=== PATIENT | female | born 1945 | race Caucasian/White ===

== ENCOUNTER → 2017-03-11 | Outpatient (CLI) | payer MEDICARE ==
[~2017-03-11] MED LIST: CYCL10TA2 PO; EZET10TA18 PO; HYDR-2758 PO; [UNRECOGNIZED DRUG - OTHER]
--- NOTE | 2017-03-11 10:40 | RAD ---
Right lower extremity bone length study, 03/11/2017: History: Osteoarthritis, surgical planning AP views of the femur and lower leg were obtained as requested with skin markers in place laterally to facilitate bone length measurements for surgical planning. This limited study demonstrates severe degenerative change involving the medial compartment of the right knee joint with chondrocalcinosis.
--- NOTE | 2017-03-11 12:03 | RAD ---
LOWER EXT JOINT WO RT dated 03/11/2017 10:29 AM Indication: Chronic knee pain , valera and nephew protocol , arthritis. No history of surgery Comparison: No comparison is available. Technique: After 3 plane localizer, thin cut sagittal proton density imaging was acquired along with a T2 axial sequence. Study was performed using valera and nephew protocol. Findings: Moderate tricompartmental hypertrophic change, most severe in the medial compartment. There are prominent marginal osteophytes. Thinning and surface irregularity of the articular cartilage throughout. Broad zones of full-thickness cartilage loss over the weightbearing surfaces medial femoral condyle and medial tibial plateau. There is also probable full-thickness cartilage loss at the medial patellar facet and patellar apex. Small joint effusion. No intra-articular loose body. No significant popliteal cyst. Anterior cruciate and posterior cruciate ligaments are intact. Medial and lateral collateral complexes are grossly intact. Quadriceps tendon and patellar tendon are intact. Blunted morphology of the posterior horn and body of medial meniscus which are somewhat deficient in size. No articular surface tear. Lateral meniscus is grossly normal in morphology and signal. IMPRESSION: 1. Limited exam, intended for surgical localization purposes only. 2. Moderate tricompartmental degenerative arthrosis and chondromalacia, most severe in the medial compartment. 3. Degenerative tearing of the posterior horn and body medial meniscus. 4. Small joint effusion. Electronically signed by: Joao Bernal MD (03/11/2017 11:59 AM) [id number]
== END | disposition home or self-care (01) ==
LOC: RAD 09:23
PROVIDERS: ATTEND Orthopaedic Surgery Sports Medicine
DX: M17.11 Unilateral primary osteoarthritis, right knee (principal); M25.461 Effusion, right knee
CPT/HCPCS: 73721; 77073

== ENCOUNTER → 2017-03-18 | Outpatient (CLI) | payer MEDICARE ==
[~2017-03-18] MED LIST changes: +ASPI-630 PO; +DOCU-150 PO; +LORA10TA68 PO; +LOSA50TA6 PO; +MULT-460 PO; +NAPR220C4 PO; +ROPI1TAB PO
[2017-03-18 09:40] LABS: BASO # 0.1 x10^3/uL (0.0-0.2); BASO % 1 % (0-3); EOS % 2 % (0-3); HEMATOCRIT 41.6 % (36.0-47.0); HEMOGLOBIN 14.2 g/dL (12.0-15.5); LYMPH # 1.5 x10^3/uL (1.0-4.8); LYMPH % 26 % (24-48); MEAN CORPUSCULAR HEMOGLOBIN 30 pg (25-35); MEAN CORPUSCULAR HGB CONC 34 g/dL (31-37); MEAN CORPUSCULAR VOLUME 87 fL (79-100); MONO % 7 % (0-9); NEUT % 65 % (31-73); PLATELET COUNT 324 x10^3/uL (140-400); RED BLOOD COUNT 4.77 x10^6/uL (3.50-5.40); RED CELL DISTRIBUTION WIDTH 14.1 % (11.5-14.5); WHITE BLOOD COUNT 6.1 x10^3/uL (4.0-11.0)
[2017-03-18 09:47] LABS: ALBUMIN 3.7 g/dL (3.4-5.0); CALCIUM 8.7 mg/dL (8.5-10.1); CREATININE 0.6 mg/dL (0.6-1.0); POTASSIUM 3.8 mmol/L (3.5-5.1)
[2017-03-18 09:54] LABS: PROTHROMBIN TIME PATIENT 12.7 SEC (11.7-14.0)
--- NOTE | 2017-03-18 12:52 | EKG ---
[facility] [address] [place] [address] Test Date: 2017-03-18 Test Time: 12:42:10 Pat Name: MIKAL SARMIENTO Department: Room: Gender: F Brokerage Manager: JOSUÉ : 1945 Requested By: KIMBERLEY BRYSON Order Number: [id number] Reading MD: Measurements Intervals [place] Rate: 100 P: -10 [place]: 158 QRS: -30 QRSD: 82 T: 43 QT: 342 QTc: 444 Interpretive Statements SINUS RHYTHM ABNORMAL LEFT AXIS DEVIATION R-S TRANSITION ZONE IN V LEADS DISPLACED TO THE LEFT LEFT ANTERIOR FASCICULAR BLOCK CONSIDER LEFT VENTRICULAR HYPERTROPHY QRS(T) CONTOUR ABNORMALITY CONSIDER ANTEROSEPTAL MYOCARDIAL DAMAGE ABNORMAL ECG RI6.01 No previous ECG available for comparison
[2017-03-18 13:02] LABS: BILIRUBIN,URINE NEGATIVE (NEG); GLUCOSE,URINE NEGATIVE (NEG); NITRITE,URINE NEGATIVE (NEG); PROTEIN,URINE 30 mg/dL (NEG-TRACE)
[2017-03-18 13:17] LABS: BACTERIA,URINE 0 /HPF (0-FEW); RBC,URINE 0 /HPF (0-2); SQUAMOUS EPITHELIAL CELL,UR FEW /LPF
--- NOTE | 2017-03-18 14:51 | RAD ---
Indication history of hypertension. Preop. Anticipated knee replacement. PA and lateral views of the chest were obtained. No prior imaging of the chest is available. The heart and pulmonary vessels appear normal. The lungs are clear. There is a calcified granuloma in the left lung and there are calcified left hilar lymph nodes. There is no acute parenchymal infiltrate. Significant pleural fluid is not seen. IMPRESSION: No acute process seen in the chest
== END | disposition home or self-care (01) ==
LOC: SURGPAT 13:19
PROVIDERS: ATTEND Orthopaedic Surgery Sports Medicine
DX: Z01.818 Encounter for other preprocedural examination (principal); I10 Essential (primary) hypertension; J84.10 Pulmonary fibrosis, unspecified; I51.7 Cardiomegaly; R94.31 Abnormal electrocardiogram [ECG] [EKG]
CPT/HCPCS: 36415; 71020; 80048; 81001; 82040; 85027; 85610; 85651; 85730; 87641; 93005

== ENCOUNTER → 2018-01-09 | Outpatient (CLI) | payer MEDICARE | END | disposition home or self-care (01) | LOC: RAD 09:07 | DX: S83.242A Other tear of medial meniscus, current injury, left knee, initial encounter (principal); M17.12 Unilateral primary osteoarthritis, left knee; M25.462 Effusion, left knee; X58.XXXA Exposure to other specified factors, initial encounter; Y93.89 Activity, other specified; Y92.89 Other specified places as the place of occurrence of the external cause; Y99.8 Other external cause status | CPT/HCPCS: 73721; 77073 ==

== ENCOUNTER → 2018-01-27 | Outpatient (CLI) | payer MEDICARE ==
[2018-01-27 11:03] LABS: ADD MAN DIFF? NO
[2018-01-27 11:10] LABS: BILIRUBIN,URINE NEGATIVE (NEG); CLARITY,URINE CLEAR; COLOR,URINE YELLOW; GLUCOSE,URINE NEGATIVE (NEG); NITRITE,URINE NEGATIVE (NEG); PH,URINE 7.5; PROTEIN,URINE NEGATIVE (NEG-TRACE)
[2018-01-27 11:17] LABS: SQUAMOUS EPITHELIAL CELL,UR FEW /LPF
[2018-01-27 11:20] LABS: BASO % 1 % (0-3); EOS # 0.1 x10^3/uL (0.0-0.7); EOS % 2 % (0-3); HEMATOCRIT 44.4 % (36.0-47.0); HEMOGLOBIN 15.4 g/dL (12.0-15.5); LYMPH # 1.8 x10^3/uL (1.0-4.8); LYMPH % 32 % (24-48); MEAN CORPUSCULAR HEMOGLOBIN 30 pg (25-35); MEAN CORPUSCULAR HGB CONC 35 g/dL (31-37); MEAN CORPUSCULAR VOLUME 85 fL (79-100); MONO # 0.5 x10^3/uL (0.0-1.1); MONO % 9 % (0-9); NEUT # 3.1 x10^3uL (1.8-7.7); NEUT % 57 % (31-73); PLATELET COUNT 295 x10^3/uL (140-400); RED BLOOD COUNT 5.23 x10^6/uL (3.50-5.40); RED CELL DISTRIBUTION WIDTH 14.4 % (11.5-14.5); WHITE BLOOD COUNT 5.5 x10^3/uL (4.0-11.0)
[2018-01-27 11:23] LABS: ALBUMIN 3.8 g/dL (3.4-5.0); ANION GAP 8 (6-14); BLOOD UREA NITROGEN 13 mg/dL (7-20); CALCIUM 9.2 mg/dL (8.5-10.1); CARBON DIOXIDE 30 mmol/L (21-32); CHLORIDE 102 mmol/L (98-107); CREATININE 0.5 mg/dL (0.6-1.0); GFR 120.6; GLUCOSE 150 mg/dL (70-99); POTASSIUM 3.9 mmol/L (3.5-5.1); SODIUM 140 mmol/L (136-145)
[2018-01-27 11:25] LABS: BACTERIA,URINE FEW /HPF (0-FEW); RBC,URINE 0 /HPF (0-2)
[2018-01-27 11:32] LABS: PROTHROMBIN TIME PATIENT 12.4 SEC (11.7-14.0)
[2018-01-27 11:33] LABS: PARTIAL THROMBOPLASTIN TIME 31 SEC (24-38)
[2018-01-27 12:24] LABS: SEDIMENTATION RATE 11 (0-25)
[2018-01-27 22:11] LABS: MRSA BY PCR Negative (Negative)
[2018-01-28 01:18] LABS: HEMOGLOBIN A1C 6.7 % (4.8-5.6)
== END | disposition home or self-care (01) ==
LOC: SURGPAT 10:16
DX: Z01.818 Encounter for other preprocedural examination (principal); J84.10 Pulmonary fibrosis, unspecified; I10 Essential (primary) hypertension
CPT/HCPCS: 36415; 71046; 80048; 81001; 82040; 83036; 85025; 85610; 85651; 85730; 87641; 93005

== ENCOUNTER 2018-02-10 06:07 | Inpatient (IN) | payer MEDICARE ==
[2018-02-10 06:42] LABS: POC GLUCOSE 166 mg/dL (70-99)
[2018-02-10] MEDS: IV RINGERS,LACTATED 1000ML 1,000 ML IV (06:53)
[2018-02-10] MEDS: MELOXICAM 7.5 MG TABLET PO (06:57)
[2018-02-10] MEDS: HYDROcodone/APAP 7.5/325MG 1 TAB TABLET PO (06:58)
[2018-02-10] MEDS ORDERED: fentaNYL PF VIAL 100 MCG/2 ML VIAL IV ×4 (07:00→07:15)
[2018-02-10] MEDS ORDERED: ONDANSETRON PF 4 MG/2 ML VIAL. IV (07:00)
[2018-02-10] MEDS ORDERED: PROCHLORPERAZINE 10 MG/2 ML VIAL. IV (07:00)
[2018-02-10] MEDS ORDERED: MORPHINE SULFATE 2 MG/ML DISP.SYRIN. IV ×2 (07:00→07:15)
[2018-02-10] MEDS ORDERED: IV RINGERS,LACTATED 1000ML 1,000 ML IV (07:00)
[2018-02-10] MEDS ORDERED: LIDOCAINE 1% PF 2 ML VIAL. ID (07:00)
[2018-02-10] MEDS ORDERED: ROCURONIUM 50 MG/5 ML VIAL. (07:12)
[2018-02-10] MEDS ORDERED: PROPOFOL 20 ML IV (07:12)
[2018-02-10] MEDS ORDERED: LIDOCAINE 2% PF Vial for OR 5 ML VIAL. (07:12)
[2018-02-10] MEDS ORDERED: fentaNYL PF VIAL 100 MCG/2 ML VIAL (07:12)
[2018-02-10] MEDS ORDERED: FAMOTIDINE 20 MG/2 ML VIAL (07:12)
[2018-02-10] MEDS ORDERED: ONDANSETRON PF 4 MG/2 ML VIAL. (07:12)
[2018-02-10] MEDS ORDERED: MORPHINE SULFATE 4 MG/ML DISP.SYRIN. IV ×2 (07:15)
[2018-02-10] MEDS ORDERED: ACETAMINOPHEN 325 MG TABLET. PO (07:15)
[2018-02-10] MEDS ORDERED: MORPHINE SULFATE 10 MG/ML VIAL. IV (07:15)
[2018-02-10] MEDS ORDERED: ZOLPIDEM 5 MG TABLET. PO (07:15)
[2018-02-10] MEDS ORDERED: METOCLOPRAMIDE HCL 10 MG/2 ML VIAL. IV (07:15)
[2018-02-10] MEDS ORDERED: PROCHLORPERAZINE 5 MG TABLET. PO (07:15)
[2018-02-10] MEDS ORDERED: CALCIUM CARBONATE 500 MG TAB.CHEW PO (07:15)
[2018-02-10] MEDS ORDERED: traMADol 50 MG TABLET PO ×2 (07:15)
[2018-02-10] MEDS ORDERED: diphenhydrAMINE 50 MG/ML VIAL IV (07:15)
[2018-02-10] MEDS ORDERED: oxyCODONE/APAP 7.5/325 1 TAB TABLET PO (07:15)
[2018-02-10] MEDS ORDERED: oxyCODONE/APAP 5/325 1 TAB TABLET PO (07:15)
[2018-02-10] MEDS ORDERED: 0.9 % SODIUM CHLORIDE 10 ML DISP.SYRIN. IV (07:15)
[2018-02-10] MEDS ORDERED: DEXTROSE 50% 25 GM / 50ML DISP.SYRIN. IV (07:15)
[2018-02-10] MEDS: INSULIN ASPART 100 UNIT/ML 10ML VIAL. SQ (07:30)
[2018-02-10 07:34] LABS: PARTIAL THROMBOPLASTIN TIME 32 SEC (24-38); PROTHROMBIN TIME PATIENT 12.6 SEC (11.7-14.0)
[2018-02-10] MEDS: TRANEXAMIC ACID 1,000 MG in IV NS 50ML -- 1ST BAG INJ (07:40)
[2018-02-10] MEDS ORDERED: PHENYLEPHRINE in 0.9% NACL PF 1 MG/10 ML SYRINGE. IV (07:46)
[2018-02-10] MEDS: MORPHINE SULFATE 5 MG, KETOROLAC 30 MG, ROPIVacaine 0.5% PF 60 ML, EPINEPHrine 0.5 MG i... INT ART (07:55)
[2018-02-10] MEDS ORDERED: NEOSTIGMINE METHYLSULFATE 5 MG/5 ML SYRINGE. (08:37)
[2018-02-10] MEDS ORDERED: GLYCOPYRROLATE 1 MG/5 ML VIAL. (08:37)
[2018-02-10] MEDS: TRANEXAMIC ACID 1,000 MG in IV NS 50ML -- 2ND BAG INJ (08:40)
[2018-02-10] MEDS ORDERED: CETIRIZINE HCL 10 MG TABLET. PO (09:00)
[2018-02-10] MEDS ORDERED: SEVOFLURANE 61 TO 120 MINUTES. IH (09:13)
[2018-02-10 09:57] LABS: POC GLUCOSE 159 mg/dL (70-99)
[2018-02-10 11:37] LABS: POC GLUCOSE 206 mg/dL (70-99)
[2018-02-10] MEDS: PROCHLORPERAZINE 10 MG/2 ML VIAL. IV (11:49)
[2018-02-10] MEDS: INSULIN LISPRO 300 UNITS/3 ML INSULN.PEN. SQ ×2 (11:51→17:41)
[2018-02-10 16:51] LABS: POC GLUCOSE 178 mg/dL (70-99)
[2018-02-10] MEDS: WARFARIN 7.5 MG TABLET. PO (17:34)
[2018-02-10] MEDS: FERROUS SULFATE 325 MG TABLET. PO (17:34)
[2018-02-10] MEDS: IV DEXTROSE 5 %-0.45 % NACL 1,000 ML IV ×2 (19:22→22:00)
[2018-02-10] MEDS: DOCUSATE SODIUM 100 MG CAPSULE. PO (20:54)
[2018-02-10 21:14] LABS: POC GLUCOSE 174 mg/dL (70-99)
[2018-02-11 03:00] LABS: POC GLUCOSE 155 mg/dL (70-99)
[2018-02-11] MEDS: HYDROcodone/APAP 7.5/325MG 1 TAB TABLET PO ×4 (03:10→23:51)
[2018-02-11 04:37] LABS: INR 1.1 (0.8-1.1); PROTHROMBIN TIME PATIENT 14.1 SEC (11.7-14.0)
[2018-02-11 04:45] LABS: HEMATOCRIT 38.5 % (36.0-47.0); HEMOGLOBIN 13.4 g/dL (12.0-15.5); MEAN CORPUSCULAR HGB CONC 35 g/dL (31-37)
[2018-02-11] MEDS ORDERED: MAGNESIUM HYDROXIDE 2,400 MG/30 ML ORAL.SUSP. PO (06:00)
[2018-02-11] MEDS: IV DEXTROSE 5 %-0.45 % NACL 1,000 ML IV ×2 (08:00→17:01)
[2018-02-11 08:35] LABS: POC GLUCOSE 157 mg/dL (70-99)
[2018-02-11] MEDS: metFORMIN 500 MG TABLET PO (08:40)
[2018-02-11] MEDS: CELECOXIB 100 MG CAPSULE. PO (08:40)
[2018-02-11] MEDS: SENNOSIDES/DOCUSATE 8.6/50MG TABLET. PO (08:40)
[2018-02-11] MEDS: FERROUS SULFATE 325 MG TABLET. PO ×2 (08:41→15:15)
[2018-02-11] MEDS: MULTIVITAMIN with MINERAL TABLET. PO (08:41)
[2018-02-11] MEDS: LOSARTAN POTASSIUM 50 MG TABLET. PO (08:41)
[2018-02-11] MEDS: INSULIN LISPRO 300 UNITS/3 ML INSULN.PEN. SQ ×3 (08:50→17:00)
[2018-02-11 12:15] LABS: POC GLUCOSE 178 mg/dL (70-99)
[2018-02-11] MEDS: WARFARIN 5 MG TABLET. PO (15:15)
[2018-02-11] MEDS ORDERED: BISACODYL 10 MG SUPP.RECT. PR (16:00)
[2018-02-11 16:54] LABS: POC GLUCOSE 127 mg/dL (70-99)
[2018-02-11] MEDS: DOCUSATE SODIUM 100 MG CAPSULE. PO (20:39)
[2018-02-12 02:53] LABS: POC GLUCOSE 160 mg/dL (70-99)
[2018-02-12 07:01] LABS: INR 1.8 (0.8-1.1); PROTHROMBIN TIME PATIENT 20.2 SEC (11.7-14.0)
[2018-02-12 07:14] LABS: HEMATOCRIT 39.6 % (36.0-47.0); HEMOGLOBIN 13.7 g/dL (12.0-15.5); MEAN CORPUSCULAR HGB CONC 35 g/dL (31-37)
[2018-02-12] MEDS: INSULIN LISPRO 300 UNITS/3 ML INSULN.PEN. SQ ×2 (08:00→11:47)
[2018-02-12] MEDS: MULTIVITAMIN with MINERAL TABLET. PO (08:05)
[2018-02-12] MEDS: SENNOSIDES/DOCUSATE 8.6/50MG TABLET. PO (08:06)
[2018-02-12] MEDS: FERROUS SULFATE 325 MG TABLET. PO (08:06)
[2018-02-12] MEDS: metFORMIN 500 MG TABLET PO (08:06)
[2018-02-12] MEDS: CELECOXIB 100 MG CAPSULE. PO (08:06)
[2018-02-12] MEDS: HYDROcodone/APAP 7.5/325MG 1 TAB TABLET PO (08:08)
[2018-02-12] MEDS: LOSARTAN POTASSIUM 50 MG TABLET. PO (08:11)
[2018-02-12 11:06] LABS: POC GLUCOSE 139 mg/dL (70-99)
[2018-02-12 11:06] LABS: POC GLUCOSE 155 mg/dL (70-99)
[2018-02-12] MEDS: WARFARIN 2 MG TABLET. PO (12:53)
[2018-02-12] MEDS: HYDROcodone/APAP 10/325 1 TAB TABLET PO (12:53)
[2018-02-12] MEDS ORDERED: WARFARIN 4 MG TABLET. PO (14:00)
[2018-02-13] MEDS ORDERED: WARFARIN 4 MG TABLET. PO (16:00)
== END 2018-02-12 15:55 | disposition home or self-care (01) | DRG 470 ==
LOC: OPSVCIP 06:07 → 4 SOUTHEST 02-11 17:57 → 4 NORTH 11:06
PROC: 0SRD069 Replacement of Left Knee Joint with Oxidized Zirconium on Polyethylene Synthetic Substitute, Cemented, Open Approach (ICD-10-PCS; principal; 2018-02-10 07:26)
DX: M17.12 Unilateral primary osteoarthritis, left knee (principal)
CPT/HCPCS: 36415; 73560; 82962; 85014; 85018; 85610; 85730; 86850; 86900; 86901; 97110-GO; 97110-GP; 97116-GP; 97150-GP; 97162-GP; 97166-GO; 97530-GO; 97530-GP; 97535-GO; A7015; C1713; J0171; J0690; J0780; J1815; J1885; J2001; J2270; J2370; J2405; J2704; J2710; J2795; J3010; J3490; J7030; J7120; S0028

== ENCOUNTER → 2019-08-14 | Outpatient (CLI) | payer MEDICARE ==
[2018-02-12 11:02] VITALS: BP 142/75
[~2019-08-14] MED LIST changes: -EZET10TA18 PO; +EZET10TA20 PO; +FERR325T14 PO; -HYDR-2758 PO; +HYDR-2761 PO; +HYDR-2765 PO; +LOSA-73 PO; -LOSA50TA6 PO; +MELO15TA23 PO; +METF500T16 PO; +WARF-31 PO; +WARF-78 PO; +WARF4TAB64 PO
--- NOTE | 2019-08-14 14:05 | [facility] ---
MRI of the lumbar spine without contrast 08/14/2019 CLINICAL HISTORY: Low back pain which radiates down the left leg for 6 weeks. History of previous lumbar spine surgery. TECHNIQUE: Unenhanced T1-weighted and T2-weighted sagittal and axial and inversion recovery sagittal images of the lumbar spine were obtained. FINDINGS: Comparison study is dated 08/29/2015. Mild to moderate S-shaped curvature of the thoracolumbar spine is seen. Degenerative signal changes and loss of height are seen involving all of the disks of the lumbar spine. Degenerative signal changes are seen within the marrow surrounding these discs. The conus medullaris is normal in morphology, position, and signal characteristics. At the L1-2 disc space there is a moderate generalized disc bulge. Degenerative changes are seen involving the facet joints bilaterally. These findings when combined do not result in significant central spinal canal or neural foraminal stenosis. At the L2-3 disc space there is a moderate generalized disc bulge. Superimposed on this disc bulge is a left paracentral focal disc herniation. This extrudes inferiorly. The extruded disc fragment measures 1.5 x 0.8 x 0.8 cm in craniocaudal, transverse and AP dimensions. Degenerative changes are seen involving the facet joints bilaterally. There is moderate ligamentum flavum hypertrophy bilaterally. These findings when combined result in mild to moderate left-sided central spinal canal stenosis at L2-3. No neural foraminal stenosis is noted. The extruded disc fragment extends to the mid L3 level and results in severe left lateral central spinal canal stenosis. It appears to impinge upon the left L3 nerve root within the left lateral aspect of the central spinal canal. At the L3-4 disc space there is a mild to moderate generalized disc bulge. This is eccentric to the left. Degenerative changes are seen involving the facet joints bilaterally. There is moderate ligamentum flavum hypertrophy bilaterally. There is prominence of the posterior epidural fat. These findings when combined result in mild to moderate left greater than right central spinal canal stenosis mild left neural foraminal stenosis is seen. The right neural foramen is patent. At the L4-5 disc space the patient is post right hemilaminotomy. There is a mild generalized disc bulge. Superimposed on this disc bulge is a right paracentral/lateral focal disc protrusion. This measures 3 mm in AP diameter. Degenerative changes are seen involving the facet joints bilaterally. Moderate left ligamentum flavum hypertrophy is seen. These findings when combined do not result in significant central spinal canal stenosis. No neural foraminal stenosis is seen. At the L5-S1 disc space there is a mild generalized disc bulge. Degenerative changes are seen involving the facet joints bilaterally. There is mild ligamentum flavum hypertrophy bilaterally. These findings do not result in significant central spinal canal or neural foraminal stenosis. The extruded disc herniation at L2-3 is new since the previous study. IMPRESSION: 1. Post right hemilaminotomy at L4-5. 2. The changes of degenerative disc disease are seen throughout the lumbar spine. These findings result in mild to moderate left-sided central spinal canal stenosis at L2-3 and mild to moderate left greater than right central spinal canal stenosis at L3-4. Mild left neural foraminal stenosis is seen at L3-4. At the L2-3 disc space a left paracentral/ focal disc herniation is seen which which extrudes inferiorly to the mid L3 level. It results in severe left lateral central spinal canal stenosis and appears to impinge upon the left L3 nerve root within the left lateral aspect of the central spinal canal. This is new since the previous study. Electronically signed by: Dima Lagos MD (08/14/2019 2:01 PM) [id number]
== END | disposition home or self-care (01) ==
LOC: KCIC MRI 12:17
PROVIDERS: ATTEND Physician Assistant Medical
DX: M51.27 Other intervertebral disc displacement, lumbosacral region (principal); M48.061 Spinal stenosis, lumbar region without neurogenic claudication; M51.36 Other intervertebral disc degeneration, lumbar region; M89.38 Hypertrophy of bone, other site
CPT/HCPCS: 72148